=== PATIENT | male | born 1980 | race Caucasian/White ===

== ENCOUNTER 2021-01-31 08:04 | Outpatient (CLI) | payer BC, SELFPAY ==
[2021-01-31 08:20] LABS: Basophils Absolute Auto 0.1 K/mm3 (0.0-0.1); Basophils Percent Auto 0.6 % (0.2-1.2); Eosinophils Absolute Auto 0.2 K/mm3 (0-0.3); Eosinophils Percent Auto 2.1 % (0-4.4); Hematocrit 47.4 % (42.0-52.0); Hemoglobin 16.1 g/dL (14.0-18.0); Immature Granulocyte Absolute 0.06 K/mm3 (0.00-0.031); Immature Granulocyte Percent A 0.6 % (0-0.5); Lymphocytes Absolute Auto 2.55 K/mm3 (0.9-3.2); Lymphocytes Percent Auto 27.6 % (18.3-44.2); Mean Corpuscular Hemoglobin 31.7 pg (26-34); Mean Corpuscular Volume 93.3 fl (80-100); Mean Platelet Volume 10.7 fl (7.4-10.4); Monocytes Absolute Auto 0.9 K/mm3 (0.1-0.6); Monocytes Percent Auto 9.8 % (2.6-8.5); Neutrophils Absolute Auto 5.5 K/mm3 (1.3-6.7); Neutrophils Percent Auto 59.3 % (45.5-73.1); Platelet Count Result 274 k/mm3 (150-375); Red Blood Count 5.08 M/mm3 (4.6-6.20); White Blood Count 9.3 K/mm3 (4.5-10.0)
[2021-01-31 08:30] LABS: Alanine Aminotransferase 37 U/L (4-50); Albumin Level 4.3 g/dL (3.5-5.1); Alkaline Phosphatase 70 U/L (38-126); Anion Gap 4 mmol/L (8-16); Aspartate Amino Transferase 35 U/L (17-59); Blood Urea Nitrogen 16 mg/dL (9-20); Calcium 9.5 mg/dL (8.4-10.2); Carbon Dioxide 30 mmol/L (22-30); Chloride 108 mmol/L (98-107); Cholesterol 187 mg/dL (0-200); Estimated Glomerular Filt Rate > 60; Glucose 108 mg/dL (75-110); HDL Direct 46 mg/dL; Potassium 4.7 mmol/L (3.4-5.0); Sodium 142 mmol/L (137-145); Triglycerides 129 mg/dL (<150)
[2021-01-31 08:41] LABS: LDL Cholesterol Direct 115 mg/dL
== END 2021-01-31 08:05 | disposition home or self-care (01) ==
PROVIDERS: PCP Internal Medicine; Visit Provider Nurse Practitioner
DX: Z13.228 Encounter for screening for other metabolic disorders (principal); Z13.220 Encounter for screening for lipoid disorders
CPT/HCPCS: 36415; 80053; 80061; 85025

== ENCOUNTER → 2021-10-03 01:07 | Outpatient (CLI) | payer BC, SELFPAY ==
[2021-10-03 21:03] LABS: SARS-CoV-2 RNA PCR Negative
== END ==
PROVIDERS: PCP Internal Medicine; Visit Provider Nurse Practitioner
DX: R05.9 Cough, unspecified (principal); R09.81 Nasal congestion; R09.89 Other specified symptoms and signs involving the circulatory and respiratory systems; Z20.822 Contact with and (suspected) exposure to COVID-19
CPT/HCPCS: C9803; U0003; U0005

== ENCOUNTER 2024-04-01 20:26 | Emergency (ER) | payer BC, SELFPAY ==
--- NOTE | ~2024-04-01 | CT_ITS ---
EXAMINATION: CT abdomen pelvis w con DATE: 04/01/2024 22:30 INDICATION: Epigastric pain. Right upper quadrant abdominal tenderness. TECHNIQUE: Computed tomography (CT) of the abdomen and pelvis was performed with 100 mL Omnipaque 350 intravenous contrast. Automated exposure control and iterative reconstruction technique were employe d. The dose-length product was 1169.98 mGy-cm. COMPARISON: None. FINDINGS: The visualized portions of the lung bases demonstrate groundglass opacities and volume loss in the lower lobes, right middle lobe, and lingula. No pleural effusion. The heart size is normal. N o pericardial effusion. There is a 9 mm cyst in the liver. The gallbladder, spleen, pancreas, adrenal glands, and left kidney are normal. There is a 12 mm cyst in right kidney. There are no dilated loop s of bowel. The appendix is normal. There are no pathologically enlarged lymph nodes. There is no mervin e intraperitoneal fluid. There are changes of posterior fusion procedure at L5-S1. There is mild lumb ar spondylosis. IMPRESSION: 1. Groundglass opacities and volume loss in the lungs, consistent with atelectasis versus atypical pn eumonia. Reviewed, dictated and finalized at location E. IMPRESSION: 1. Groundglass opacities and volume loss in the lungs, consistent with atelecta sis versus atypical pneumonia.
[2024-04-01 20:28] VITALS: BP 152/78; PULSE 107; RESP 15; TEMP 37.5; O2SAT 99
[2024-04-01 20:46] LABS: Basophils Percent Auto 0.3 % (0.2-1.2); Eosinophils Absolute Auto 0.1 K/mm3 (0-0.3); Eosinophils Percent Auto 0.9 % (0-4.4); Hematocrit 45.3 % (42.0-52.0); Hemoglobin 15.5 g/dL (14.0-18.0); Immature Granulocyte Absolute 0.06 K/mm3 (0.00-0.031); Immature Granulocyte Percent A 0.6 % (0-0.5); Lymphocytes Absolute Auto 1.42 K/mm3 (0.9-3.2); Lymphocytes Percent Auto 14.8 % (18.3-44.2); Mean Corpuscular HGB Conc 34.2 g/dl (32-36); Mean Corpuscular Hemoglobin 32.2 pg (26-34); Monocytes Absolute Auto 0.7 K/mm3 (0.1-0.6); Monocytes Percent Auto 7.6 % (2.6-8.5); Neutrophils Absolute Auto 7.2 K/mm3 (1.3-6.7); Neutrophils Percent Auto 75.8 % (45.5-73.1); Platelet Count Result 233 k/mm3 (150-375); Red Blood Count 4.82 M/mm3 (4.6-6.20); Red Cell Distribution Width 12.6 % (11.5-14.5); White Blood Count 9.6 K/mm3 (4.5-10.0)
[2024-04-01 20:57] LABS: Alanine Aminotransferase 56 U/L (6-50); Albumin Level 4.8 g/dL (3.5-5.1); Alkaline Phosphatase 77 U/L (38-126); Anion Gap 11 mmol/L (4-12); Aspartate Amino Transferase 44 U/L (17-59); Bilirubin,Total 1.2 mg/dL (0.2-1.3); Blood Urea Nitrogen 16 mg/dL (9-20); Calcium 9.6 mg/dL (8.4-10.2); Carbon Dioxide 25 mmol/L (22-30); Chloride 102 mmol/L (98-107); Estimated CRCL calculation 105 ml/min; Estimated Glomerular Filt Rate > 60; Glucose 109 mg/dL (65-110); Lipase 48 U/L (23-300); Potassium 4.1 mmol/L (3.4-5.0); Sodium 138 mmol/L (137-145)
[2024-04-01 21:21] LABS: Appearance Urine Clear (Clear); Bilirubin Urine Negative (Negative); Blood Urine Negative (Negative); Color Urine Yellow (Yellow); Glucose Urine UA Negative (Negative); Ketones Urine Negative (Negative); Leukocyte Esterase Ur Negative LEU/UL (Negative); Nitrate Urine Negative (Negative); Protein Urine Negative (Negative); Specific Grav Ur 1.009 (1.001-1.035); Urobilinogen Urine 0.2 mg/dL (<2.0); pH Urine 6.5 (5.0-9.0)
[2024-04-01 21:37] LABS: Add Urine Microscopic? NO
[2024-04-01 22:03] VITALS: BP 141/87; PULSE 89; RESP 20; O2SAT 99
--- NOTE | 2024-04-01 22:07 | ED.ABDPAIN ---
HPI - Abdominal Pain General Chief Complaint: Abdominal Pain Stated Complaint: upper abd pain, fever x 2 days Time Seen by Provider: 04/01/24 22:01 Source: patient Mode of arrival: ambulatory Limitations: no limitations History of Present Illness HPI narrative: this is a 43-year-old male with PMH of HTN who presents to the ED with chief complaint of generalized abdominal pain x2 days. States it is worse in the upper abdomen. Reports fever up to 101.9? F at home. States that he thought he may be a little stopped up so he took some Mag citrate today and pain has worsened. Reports that he was having regular bowel movements prior with last BM this morning. States he did go camping over the weekend but has not had any diarrhea or vomiting. Denies urinary symptoms, flank pain. Denies chest pain, shortness of breath, cough, back pain. Related Data Home Medications Medication Instructions Recorded Confirmed diphenhydramine HCl 25 mg tablet 50 mg PO ONCE PRN hives 11/22/22 07/31/23 (Benadryl Allergy) famotidine-Ca carb-mag hydrox 10 1 tablet PO BID PRN indigestion 11/22/22 07/31/23 mg-800 mg-165 mg chewable tablet (Pepcid Complete) omeprazole 20 mg capsule,delayed 20 mg PO DAILY 06/05/23 07/31/23 release Allergies Allergy/AdvReac Type Severity Reaction Status Date / Time No Known Allergies Allergy Mild Verified 07/31/23 15:29 Review of Systems Review of Systems: All systems as dictated in HPI [facility] Past Medical History Medical History Abscess (~01/16/23) top of buttocks Acute non-recurrent maxillary sinusitis Back disorder Lower back fusion 1997 BMI 31.0-31.9,adult BMI 32.0-32.9,adult Coughing Elevated blood pressure reading Elevated glucose Encounter for prostate cancer screening Encounter for wellness examination in adult Environmental allergies Fever blister Gastro-esophageal reflux disease without esophagitis Labile essential hypertension (~06/05/23) Migraine without aura and without status migrainosus, not intractable Obesity (BMI 30.0-34.9) Otitis media Tobacco abuse Patient quit smoking Upper respiratory infection Urticaria Surgical History Surgical History H/O vasectomy History of lumbar fusion (~1997) Family History Family History Grandparent Carcinoma of colon Social History Social History Smoking status: Former smoker ( 1 pack daily for 20 years with patient quitting around 2018.) Alcohol intake: current Substance use: never Substance use type: does not use Lack of Transportation: No Lack of Food: Never True Current Housing: I Have Housing Concerned About Future Housing: No Difficulty Paying Gas/Electric Bills: No Difficulty Paying for Meds: No Currently Unemployed: No Education: Trade/Vocational Certificate Difficulty w/ Childcare or Family Care: No Living arrangements: with family Additional living arrangements comments: the patient lives with his and three daughters Occupation/Education: occupation Gender identity (if verbalized by the patient): Male Sexual Orientation (if Verbalized by the Patient): Straight or Heterosexual Exam Narrative: GENERAL: Well-appearing, well-nourished, and in no acute distress. HEAD: Normocephalic, atraumatic. EYES: PERRLA and EOMI. ENT: Nares clear, no rhinorrhea or epistaxis. Mucous membranes moist. Oropharynx without tonsillar hypertrophy exudate or other lesions. NECK: Supple. No adenopathy or masses. CHEST: No respiratory distress. Clear to auscultation. No wheezes rales or rhonchi HEART: Regular rate and rhythm. No murmur heard. Normal peripheral pulses. ABDOMEN: Soft, nontender, nondistended, normal active bowel sounds. MSK: Normal range of motion. No edema. SKI
[2024-04-01] MEDS: ONDANSETRON INJ 4 MG/2 ML VIAL IV PUSH (22:17)
[2024-04-01] MEDS: MORPHINE SULFATE (*CRX) 4 MG/ML INJ IV PUSH (22:17)
[2024-04-01] MEDS: DOXYCYCLINE HYCLATE 100 MG TABLET PO (23:37)
[2024-04-01] MEDS: KETOROLAC 30 MG/ML VIAL (*BKC) IV PUSH (23:37)
[2024-04-01 23:50] VITALS: BP 133/78; PULSE 90; RESP 17; O2SAT 98
== END 2024-04-01 23:50 | disposition home or self-care (01) ==
PROVIDERS: Emergency Medicine; Emergency Provider Physician Assistant; PCP Family Medicine
DX: J18.9 Pneumonia, unspecified organism (principal); I10 Essential (primary) hypertension; Z87.891 Personal history of nicotine dependence
CPT/HCPCS: 36415; 74177; 80053; 81003; 83690; 85025; 96365; 96375; 99284; A9270; J0696; J1885; J2270; J2405; Q9967

== ENCOUNTER 2024-12-18 17:53 | Emergency (ER) | payer BC, SELFPAY ==
--- NOTE | 2024-12-18 17:59 | ED.SKABFB ---
HPI - Skin/Abscess/Foreign Bdy General Chief complaint: Skin/Abscess/Foreign Body Stated complaint: cyst on neck Source: patient and RN notes reviewed Mode of arrival: ambulatory Limitations: dementia History of Present Illness HPI narrative: 44-year-old male presents with concern for of painful bumps on the back of his neck. He reports it has been there for a long time, started off small and over the last several days it has gotten larger and drainage today. He denies fever MD complaint: other (Redness) Related Data Home Medications ?Medication ?Instructions ?Recorded ?Confirmed ?Last Taken ?Type diphenhydramine HCl 25 mg tablet 50 mg PO ONCE PRN hives 11/22/22 11/06/24 Unknown History (Benadryl Allergy) famotidine-Ca carb-mag hydrox 10 1 tablet PO BID PRN indigestion 11/22/22 11/06/24 Unknown History mg-800 mg-165 mg chewable tablet (Pepcid Complete) Allergies Allergy/AdvReac Type Severity Reaction Status Date / Time No Known Allergies Allergy Mild Verified 12/18/24 18:03 Review of Systems Review of Systems: CONSTITUTIONAL: Denies malaise, chills, sweats, or fever. SKIN: Reports swollen, red bump on the back of his neck with drainage. Denies vesicles, bullae, numbness, pain beyond proportion MUSCULOSKELETAL: Denies joint pain or myalgia. NEUROLOGIC: Denies headache. All systems reviewed & are unremarkable except as noted in HPI and below PMFSH Past Medical History Medical History (Updated 12/18/24 @ 18:29 by Yaneth Watson NP) Olecranon bursitis Localized swelling, mass and lump, neck BMI 33.0-33.9,adult Essential hypertension Mixed hyperlipidemia Coughing Acute non-recurrent maxillary sinusitis BMI 32.0-32.9,adult Labile essential hypertension (~06/05/23) Fever blister Urticaria Obesity (BMI 30.0-34.9) BMI 31.0-31.9,adult Gastro-esophageal reflux disease without esophagitis Migraine without aura and without status migrainosus, not intractable Encounter for prostate cancer screening Encounter for wellness examination in adult Elevated blood pressure reading Elevated glucose Tobacco abuse Patient quit smoking Otitis media Upper respiratory infection Back disorder Lower back fusion 1998 Abscess (~01/16/23) top of buttocks Environmental allergies Surgical History Surgical History H/O vasectomy History of lumbar fusion (~1997) Family History Family History Grandparent Carcinoma of colon Social History Social History Smoking status: Former smoker ( 1 pack daily for 20 years with patient quitting around 2017.) Alcohol intake: current Substance use: never Substance use type: does not use Lack of Transportation: No Lack of Food: Never True Current Housing: I Have Housing Concerned About Future Housing: No Difficulty Paying Gas/Electric Bills: No Difficulty Paying for Meds: No Currently Unemployed: No Education: Trade/Vocational Certificate Difficulty w/ Childcare or Family Care: No Living arrangements: with family Additional living arrangements comments: the patient lives with his and three daughters Occupation/Education: occupation Gender identity (if verbalized by the patient): Male Sexual Orientation (if Verbalized by the Patient): Straight or Heterosexual Comments At time of signature, agree with nursing past medical, surgical, social and family history. There is no relevant family history pertinent to the presenting complaint Exam Narrative: GENERAL: Well-appearing, well-nourished, and in no acute distress. HEAD: Normocephalic, atraumatic. EYES: PERRLA, conjunctivae clear ENT: Mucous membranes moist. NECK: Supple. No lymphadenopathy CHEST: Clear to auscultation. No respiratory distress. HEART: Regular rate and rhythm. SKIN: Warm, dry. Approximately a 5 cm raised fluctuant area of Erythema, induration, tenderness, warmth with sharp margins noted posterior right-sided neck. No vesicles, bullae, necrosis, ecchymosis, crepitus noted. NEURO: Alert and oriented x3. PSYCH: Normal mood and affect Course Course Emergency Course: Patient is aware of diagnosis, understands and agrees to treatment plan. Anticipatory guidance given. Patient agrees to follow-up as directed and is aware of reasons to seek care at the emergency department. Portions of this record may have been created with voice recognition software Level of Care: Express Care Visit Vital Signs Vital signs: Reviewed. Procedures Abscess I/D neck: Date of Incision: 03/28/25 Time of Incision: 18:27 Side (if applicable): right Local Anesthetic: lidocaine 1% Amount of anesthesia used (mL): 4 Technique: incised with #11 blade Amount of fluid expressed (mL): 5 Irrigation: Yes Packing used?: iodoform I&D Results: Pus MDM - Skin/Abscess/Foreign Bdy MDM Narrative Medical decision making narrative: I evaluated this in the [facility]. History is obtained from patient who is an independent historian and physical exam was performed.? Available medical records were reviewed. ? Exam findings and relevant testing show no acute concerns or changes; patient is non-toxic appearing and is in no distress. No risk factors or findings concerning for epidural abscess, diskitis, vertebral osteomyelitis, cord compression, cauda equina, vertebral fracture or bone malignancy, AAA, or pyelonephritis. Patient instructed to consider further imaging and workup through their primary care physician as an outpatient if symptoms persist. Does not appear at this time to be erythema multiforme, bullous, SJS, TEN; no evidence at this time to suggest RMSF, NSTI, endocarditis or Lyme disease; patient looks well, nontoxic and is tolerating oral intake; no neurologic signs or symptoms; no headache, photophobia or neck pain; afebrile.? Patient does not have history of of penetrating trauma, laceration, blunt trauma, recent surgery, immunosuppression, malignancy, obesity, alcoholism, corticosteroid use.? Discussed the importance of follow-up, patient agrees; question, cellulitis versus necrotizing soft tissue infection versus abscess.?? Patient is appropriate for outpatient treatment and follow-up. Critical Care Time Critical Care Time Critical Care Time: No Discharge Plan Discharge Clinical Impression: Abscess Patient Disposition: Home, Self-Care Condition: Stable Instructions: Abscess Incision and Drainage (DC) Additional Instructions: You have had an abscess drained at [facility]. You may shower - let the soapy water clean your wound, do not scrub it. Keep your wound covered to prevent transmission of infection to other people. Follow up with your primary care physician. Go to the Emergency Department immediately if you develop any of the following symptoms: Fevers, Increased redness or swelling around where your abscess was, Increased pain, or Generalized weakness or vomiting. Please Keep the wound covered and dry. You may remove the packing in 24 hours. Once a day: wash the wound with soap/water, apply bacitracin or neosporin and re-cover the wound. If you have any worsening of symptoms, including severe pain/swelling/numbness/changes in sensation/weakness, redness which expands more than it is right now or any other concerns please return to the ED immediately. Patient Language: Lao Prescriptions: New clindamycin HCl 300 mg capsule 300 mg PO Q8H 7 Days Qty: 21 0RF No Action Pepcid Complete 10-800-165 mg tablet,chewable 1 tablet PO BID PRN (Reason: indigestion) diphenhydramine HCl [Benadryl Allergy] 25 mg tablet 50 mg PO ONCE PRN (Reason: hives) amlodipine 10 mg tablet 10 mg PO DAILY Qty: 90 3RF irbesartan 300 mg tablet 300 mg PO DAILY Qty: 90 3RF zolmitriptan [Zomig] 5 mg tablet See Rx Instructions PO .COMPLEX Qty: 7 5RF Rx Instructions: take 1 tab at onset of headache; if no relief, may repeat 1 tab after at least 2 hrs; max = 2 tabs/24 hrs PO omeprazole 40 mg capsule,delayed release(DR/EC) 40 mg PO DAILY Qty: 90 3RF valacyclovir [Valtrex] 1 gram tablet 1,000 mg PO .COMPLEX Qty: 20 3RF Rx Instructions: 1,000 mg orally take 2 tablets twice daily for 1 day at onset of fever blister as needed; Follow-up/Referrals: Nitish De Anda MD [Primary Care Provider] - Time of Disposition: 18:49
[2024-12-18 18:10] VITALS: BP 148/107; PULSE 73; RESP 18; TEMP 36.6; O2SAT 99
[2024-12-18] MEDS: LIDOCAINE 1% LOCAL INJ 2 ML AMPUL 4 ML INFILTRATE (18:27)
== END 2024-12-18 18:55 | disposition home or self-care (01) ==
PROVIDERS: Emergency Provider Nurse Practitioner; PCP Family Medicine
DX: L02.11 Cutaneous abscess of neck (principal); I10 Essential (primary) hypertension; E78.2 Mixed hyperlipidemia; Z87.891 Personal history of nicotine dependence
CPT/HCPCS: 10060; 87070; 87075; 87205; 99213; G0463; J2003